=== PATIENT | male | born 1985 | race Caucasian/White ===

== ENCOUNTER 2024-11-07 07:39 | Emergency (ER) | payer OTHER ==
[~2024-11-07] VITALS: Ht 180.3 cm; Wt 99.8 kg
[2024-11-07] MEDS ORDERED: Prochlorperazine Edisylate 10 mg Vial IV ONE (08:40)
[2024-11-07] MEDS ORDERED: Ondansetron HCl 2 MG / ML 2ML Vial IV ONE (08:40)
[2024-11-07] MEDS ORDERED: DiphenhydrAMINE HCl 50 MG/ML 1ML Vial IV ONE (08:40)
[2024-11-07] MEDS ORDERED: NS 1,000 ML IV SCH (08:40)
[2024-11-07] MEDS ORDERED: Scopolamine Hydrobromide Patch TOP ONE (10:35)
[2024-11-07] MEDS ORDERED: Meclizine HCl 25 MG Tab PO ONE (10:35)
[2024-11-07] MEDS ORDERED: PRED20 PO (10:52)
== END 2024-11-07 11:00 | disposition home or self-care (01) ==
LOC: ER 07:39
DX: R51.9 Headache, unspecified (principal); R42 Dizziness and giddiness
CPT/HCPCS: 96361; 96374; 96375; 99283-25; A9270; J0780; J1200; J2405; J7030

== ENCOUNTER 2025-01-15 08:41 | Emergency (ER) | payer OTHER ==
[~2025-01-15] VITALS: Ht 180.3 cm; Wt 95.2 kg
[~2025-01-15 08:41] MED LIST: PRED20 PO
[2025-01-15] MEDS ORDERED: Ketorolac Tromethamine 15mg Vial IV ONE (10:05)
[2025-01-15 10:23] LABS: BASOPHILS ABSOLUTE AUTO 0.05 K/mm3 (0.00-0.23); BASOPHILS PERCENT AUTO 1 % (0-2); EOSINOPHILS ABSOLUTE AUTO 0.08 K/mm3 (0.00-0.68); EOSINOPHILS PERCENT AUTO 1 % (0-6); Hematocrit 37.0 % (37.0-53.0); Hemoglobin 12.9 g/dL (13.5-17.5); IMMATURE GRAN ABSOLUTE AUTO 0.02 K/mm3 (0.00-0.10); IMMATURE GRAN PERCENT AUTO 0 % (0-1); LYMPHOCYTES ABSOLUTE AUTO 1.80 K/mm3 (0.84-5.20); LYMPHOCYTES PERCENT AUTO 30 % (21-46); MONOCYTES ABSOLUTE AUTO 0.65 K/mm3 (0.16-1.47); MONOCYTES PERCENT AUTO 11 % (4-13); Mean Corpuscular HGB Conc 34.9 g/dL (31.5-36.5); Mean Corpuscular Volume 91 fL (80-100); NEUTROPHILS ABSOLUTE AUTO 3.39 K/mm3 (1.96-9.15); NEUTROPHILS PERCENT AUTO 57 % (41-73); NRBC ABSOLUTE 0.00 K/mm3 (0.00-0.02); NRBC Auto 0.0 /100 WBC (0.0-0.2); Platelet Count 205 K/mm3 (150-400); RDW Coefficient Variation 12.3 % (11.7-14.2); RDW Standard Deviation 41.3 fL (35.1-46.3)
[2025-01-15 10:59] LABS: Alanine Aminotransfer (ALT/SGP 176.0 U/L (12-78); Albumin, Blood 3.7 g/dL (3.4-5.0); Albumin/Globulin Ratio 1.2 (0.8-1.8); Anion Gap 5.0 mmol/L (3-11); Aspartate Aminotrans (AST/SGOT 81.0 U/L (12-37); Bilirubin, Total 0.4 mg/dL (0.1-1.0); Blood Urea Nitrogen 8.0 mg/dL (8-24); CO2, Blood 28.0 mmol/L (21-32); Calcium, Blood 8.7 mg/dL (8.5-10.1); Chloride, Blood 110.0 mmol/L (98-108); Creatinine, Blood 0.74 mg/dL (0.60-1.20); Globulin, Blood 3.2 g/dL (2.2-4.0); Glucose, Blood 97.0 mg/dL (70-99); Potassium, Blood 3.7 mmol/L (3.5-5.5); Sodium, Blood 139.0 mmol/L (136-145); Total Protein, Blood 6.9 g/dL (6.4-8.2)
== END 2025-01-15 13:24 | disposition home or self-care (01) ==
LOC: ER 08:41
PROVIDERS: Physician Assistant
DX: R42 Dizziness and giddiness (principal); J32.0 Chronic maxillary sinusitis; Z79.899 Other long term (current) drug therapy
CPT/HCPCS: 70450; 80053; 83690; 85025; 96374; 99284-25; J1885

== ENCOUNTER 2025-01-17 12:12 | Emergency (ER) | payer OTHER ==
[~2025-01-17] VITALS: Ht 177.8 cm; Wt 97.5 kg
[2025-01-17 13:21] LABS: BASOPHILS ABSOLUTE AUTO 0.03 K/mm3 (0.00-0.23); BASOPHILS PERCENT AUTO 0 % (0-2); EOSINOPHILS ABSOLUTE AUTO 0.09 K/mm3 (0.00-0.68); EOSINOPHILS PERCENT AUTO 1 % (0-6); Hematocrit 37.6 % (37.0-53.0); Hemoglobin 13.1 g/dL (13.5-17.5); IMMATURE GRAN ABSOLUTE AUTO 0.02 K/mm3 (0.00-0.10); IMMATURE GRAN PERCENT AUTO 0 % (0-1); LYMPHOCYTES ABSOLUTE AUTO 2.54 K/mm3 (0.84-5.20); LYMPHOCYTES PERCENT AUTO 38 % (21-46); MONOCYTES ABSOLUTE AUTO 0.60 K/mm3 (0.16-1.47); MONOCYTES PERCENT AUTO 9 % (4-13); Mean Corpuscular HGB Conc 34.8 g/dL (31.5-36.5); Mean Corpuscular Volume 93 fL (80-100); NEUTROPHILS ABSOLUTE AUTO 3.41 K/mm3 (1.96-9.15); NEUTROPHILS PERCENT AUTO 51 % (41-73); NRBC ABSOLUTE 0.00 K/mm3 (0.00-0.02); NRBC Auto 0.0 /100 WBC (0.0-0.2); Platelet Count 226 K/mm3 (150-400); RDW Coefficient Variation 12.0 % (11.7-14.2); RDW Standard Deviation 40.8 fL (35.1-46.3)
[2025-01-17 13:38] LABS: Alanine Aminotransfer (ALT/SGP 118.0 U/L (12-78); Albumin, Blood 3.8 g/dL (3.4-5.0); Albumin/Globulin Ratio 1.0 (0.8-1.8); Anion Gap 8.0 mmol/L (3-11); Aspartate Aminotrans (AST/SGOT 43.0 U/L (12-37); Bilirubin, Total 0.5 mg/dL (0.1-1.0); Blood Urea Nitrogen 9.0 mg/dL (8-24); CO2, Blood 26.0 mmol/L (21-32); Calcium, Blood 8.6 mg/dL (8.5-10.1); Chloride, Blood 108.0 mmol/L (98-108); Creatinine, Blood 0.72 mg/dL (0.60-1.20); Globulin, Blood 4.0 g/dL (2.2-4.0); Glucose, Blood 87.0 mg/dL (70-99); Potassium, Blood 4.0 mmol/L (3.5-5.5); Sodium, Blood 138.0 mmol/L (136-145); Total Protein, Blood 7.8 g/dL (6.4-8.2)
== END 2025-01-17 16:00 | disposition left against medical advice (07) ==
LOC: ER 12:12
PROVIDERS: Student in an Organized Health Care Education/Training Program
DX: R42 Dizziness and giddiness (principal); Z53.21 Procedure and treatment not carried out due to patient leaving prior to being seen by health care provider
CPT/HCPCS: 80053; 85025; 93005; 93010; 99283-25